=== PATIENT | male | born 1960 | race Caucasian/White ===

== ENCOUNTER 2016-12-27 14:48 | Observation (INO) | payer BC ==
--- NOTE | 2016-12-27 15:06 | Emergency Department Record ---
History of Present Illness - General Chief Complaint: Chest Pain Stated Complaint: BARRETT,CHEST HURST Time Seen by Provider: 12/27/16 15:04 Source: Patient Mode of Arrival: Ambulatory Limitations: No limitations - History of Present Illness Initial Comments: The patient is here due to a 5 hour hx of being ill. He got home this AM from work and went to bed at 7am. At 10am he woke up with vomiting and diarrhea. He had multiple episodes over the next 3 hours of each. He also had some LUQ AP. After the vomiting seemed to improve he developed some SOB. The patient has had no CP, sweating or any cardiac type pain symptoms. He also is feeling leg cramps at times. The patient has had 2 open heart surgeries due to a mitral valve issue and he is on Coumadin. The also has had a mild BEARDEN since this all started but did not hit his head. MD Complaint: Other Onset/Timin -: Hour(s) Onset: Awoke with symptoms Pain Location: Other (L Flank.) Severity: Mild Severity scale (1-10): 7 Quality: Aching Consistency: Constant Improves With: Rest Worsens With: Exertion, Inspiration, Movement - Related Data Home Medications Medication Instructions Recorded Confirmed Last Taken Aspirin [Aspir 81] 81 mg PO DAILY tab. 11/08/15 12/27/16 1 Day Ago Atorvastatin Calcium [Lipitor] 10 mg PO DAILY tab 11/08/15 12/27/16 1 Day Ago Clonazepam [Klonopin] 0.5 mg PO DAILY tab 11/08/15 12/27/16 1 Day Ago Magnesium Oxide [Magnesium] 125 mg PO DAILY tab 11/08/15 12/27/16 1 Day Ago Omeprazole [Prilosec] 20 mg PO DAILY cap 11/08/15 12/27/16 1 Day Ago Warfarin Sodium 2.5 mg PO WEEKLY tab 11/08/15 12/27/16 1 Day Ago Warfarin Sodium 5 mg PO 6XWEEK tab 11/08/15 12/27/16 1 Day Ago Amiodarone HCl [Amiodarone HCl] 100 mg PO DAILY 12/24/15 12/27/16 1 Day Ago Metoprolol Tartrate [Lopressor] 25 mg PO BID 12/27/16 12/27/16 1 Day Ago Previous Rx's Medication Instructions Recorded Hydrocodone/Acetaminophen [[place] 1 - 2 each PO QID #20 tablet 12/24/15 5-325 Tablet] Allergies Allergy/AdvReac Type Severity Reaction Status Date / Time No Known Allergies Allergy none Verified 12/27/16 15:03 Travel Screening - Travel/Exposure Within Last 30 Days Have you traveled within the last 30 days?: No - Travel/Exposure Within Last Year Have you traveled outside the [place] in the last year?: No - Additonal Travel Details Have you been exposed to anyone with a communicable illness?: No - Travel Symptoms Symptom Screening: None Review of Systems Constitutional: Reports: Malaise. Denies: Chills, Fever Eyes: Denies: Eye discharge ENT: Denies: Congestion Respiratory: Reports: Dyspnea. Denies: Cough, Hemoptysis Cardiovascular: Denies: Arrhythmia, Chest pain Endocrine: Reports: Fatigue Gastrointestinal: Reports: Abdominal pain, Diarrhea, Nausea, Vomiting Genitourinary: Denies: Dysuria Musculoskeletal: Denies: Back pain Skin: Denies: Bruising Past Medical History - SOCIAL HISTORY Smoking Status: Never smoker Alcohol Use: None Drug Use: None - RESPIRATORY Hx Respiratory Disorders: No - CARDIOVASCULAR Hx Cardio Disorders: Yes Hx Cardiac Cath: Yes Hx Deep Vein Thrombosis: Yes Hx Heart Attack: Yes Hx Irregular Heartbeat: Yes - NEURO Hx Neuro Disorders: No - GI Hx Reflux: Yes - Hx Genitourinary Disorders: Yes Hx Bladder Problem: Yes Hx Kidney Stones: Yes Comment:: frequeny urination - ENDOCRINE Hx Diabetes: No Hx Thyroid Disease: No - MUSCULOSKELETAL Hx Musculoskeletal Disorders: No - PSYCH Hx Psych Problems: No - HEMATOLOGY/ONCOLOGY Hx Hematology/Oncology Disorders: No Family Medical History Any Significant Family History?: Yes Hx Heart Disease: Father, Brother/Sister *Heart Comment: father [place] Physical Exam - General General Appearance: Alert, Oriented x3, Cooperative, No acute distress - Head Head exam: Atraumatic, Normocephalic, Normal inspection - Eye Eye exam: Normal appearance, PERRL - Neck Neck exam: Normal inspection, Full ROM. negative: Tenderness - Respiratory Respiratory exam: Normal lung sounds bilaterally. negative: Respiratory distress - Cardiovascular Cardiovascular Exam: Regular rate, Normal rhythm, Normal heart sounds - GI/Abdominal GI/Abdominal exam: Soft, Tenderness (There is mild LUQ abdominal tenderness.). negative: Guarding, Rebound, Rigid - Extremities Extremities exam: Normal inspection, Full ROM, Normal capillary refill. negative: Tenderness - Neurological Neurological exam: Alert, Normal gait. negative: Abnormal gait, Motor sensory deficit Course Vital Signs 12/27/16 14:53 Temperature 98.8 F Pulse Rate 75 Respiratory 22 Rate Blood Pressure 103/77 Pulse Ox 92 L - Reevaluation(s) Reevaluation #1: The patient is doing much better at this time. His RA biox is running 96% and he no longer has any LUQ AP or BARRETT. His nausea and vomiting has resolved. The patient also states her BEARDEN is pretty much gone now. I explained to the patient that his workup so far is WNL but due to the constellation of his symptoms and hx I do feel it is important to keep him in the hospital overnight. The patient agrees to the plan. I then did discuss the case with DR. Sepulveda and she accepts the admission. 12/27/16 16:44 Medical Decision Making - Management Options MDM Management: Additional Work-up Planned (e.g. ADM/Transfer/OP Study) - Data Complexity MDM Data: Labs Ordered and/or Reviewed, X-Ray Ordered and/or Reviewed, EKG Ordered and/or Reviewed - Lab Data Result diagrams: 12/27/16 15:13 12/27/16 15:27 - EKG Data -: EKG Interpreted by Me EKG: No Acute Changes, Normal EKG - Radiology Data Radiology results: Report reviewed (CXR: Neg Abd CT: No acute changes in the LUQ.) Disposition Disposition: Admit Clinical Impression: Dyspnea Qualifiers: Dyspnea type: unspecified Qualified Code(s): R06.00 - Dyspnea, unspecified Disposition: Still a Patient at [facility] Decision to Admit: Admit from ER Decision to Admit Date: 12/27/16 Decision to Admit Time: 16:47 Accepting Physician: Coco Time Discussed w/Accepting Physician: 16:47 Condition: (2) Stable Forms: Patient Portal Access Time of Disposition: 16:47
[2016-12-27 15:23] LABS: BASO % 0.1 % (0-6); EOS % 0.4 % (0-6); HEMATOCRIT 46.2 % (42.0-52.0); HEMOGLOBIN 15.9 gm/dl (14.0-18.0); LYMPH % 3.6 % (16-45); MEAN CELL VOLUME 95.3 fl (81-97); MEAN CORPUSCULAR HEMOGLOBIN 32.8 pg (27-33); MEAN CORPUSCULAR HGB CONC 34.4 g/dl (32-36); MEAN PLATELET VOLUME 9.3 fl (7.4-10.4); MONO % 6.3 % (0-9); PLATELET COUNT 176 K/uL (130-400); RED BLOOD COUNT 4.85 M/uL (4.40-5.70); RED CELL DISTRIBUTION WIDTH 13.6 % (11.5-14.5); WHITE BLOOD COUNT W/O DIFF 11.3 K/uL (4.2-12.2)
[2016-12-27 15:39] LABS: ANION GAP 13.3 (7-16); BLOOD UREA NITROGEN 22 mg/dL (9-20); CARBON DIOXIDE 21.7 mmol/L (22-30); CREATINE PHOSPHOKINASE 34 U/L (55-170); CREATININE 1.2 mg/dL (0.66-1.25); EST GLOMERULAR FILTRATION RATE > 60 ml/min; GLUCOSE,RANDOM 102 mg/dL (70-110)
[2016-12-27 15:42] LABS: D-DIMER 0.52 mg/L FEU (0-0.59); INR 1.74; PARTIAL THROMBOPLASTIN TIME 28.1 SECONDS (24.5-39.1); PROTHROMBIN TIME (PATIENT) 19.7 SECONDS (9.5-12.1)
[2016-12-27] MEDS ORDERED: ACETAMINOPHEN 325 MG TAB PO ONE (15:51)
[2016-12-27 15:53] LABS: CKMB 0.2 ug/L (0-6); TROPONIN I < 0.012 ng/mL (0.00-0.034)
[2016-12-27] MEDS ORDERED: ONDANSETRON HCL IV 4 MG/2 ML VIAL IVP ONE (15:57)
[2016-12-27] MEDS ORDERED: 0.9 % SODIUM CHLORIDE 1,000 ML BAG IV ONE (15:57)
[2016-12-27] MEDS ORDERED: WARFARIN 2.5 MG TAB PO SCH (17:00)
[2016-12-27] MEDS ORDERED: 0.9 % SODIUM CHLORIDE 1000ML 1,000 ML IV PRN (17:25)
[2016-12-27 17:38] LABS: INFLUENZA A NEGATIVE (NEGATIVE); INFLUENZA B NEGATIVE (NEGATIVE)
[2016-12-27] MEDS ORDERED: HYDROCODONE/APAP 5/325MG TABLET PO SCH (18:00)
[2016-12-27] MEDS ORDERED: HYDROCODONE/APAP 5/325MG TABLET PO PRN ×2 (18:37→18:40)
[2016-12-27] MEDS: ASPIRIN 325 MG TAB ENTERIC-COATED PO SCH (18:54)
[2016-12-27] MEDS: ACETAMINOPHEN 500 MG TABLET PO PRN (21:10)
[2016-12-27] MEDS: PANTOPRAZOLE SODIUM 40 MG TABLET PO SCH (21:11)
[2016-12-27] MEDS: METOPROLOL TART 25 MG TABLET PO SCH (21:11)
[2016-12-27 21:40] LABS: URINE APPEARANCE CLEAR; URINE BILIRUBIN NEGATIVE (NEGATIVE); URINE BLOOD NEGATIVE (NEGATIVE); URINE COLOR YELLOW; URINE GLUCOSE (UA) NEGATIVE (NEGATIVE); URINE KETONE NEGATIVE (NEGATIVE); URINE LEUKOCYTE ESTERASE NEGATIVE (NEGATIVE); URINE NITRITE NEGATIVE (NEGATIVE); URINE PROTEIN NEGATIVE (NEGATIVE); URINE UROBILINOGEN 0.2 E.U./dL (0.20 - 1.00)
[2016-12-27] MEDS ORDERED: ATORVASTATIN 20 MG TABLET PO SCH (22:00)
[2016-12-27] MEDS ORDERED: AMIODARONE HCL 200 MG TABLET PO SCH (22:00)
[2016-12-27] MEDS ORDERED: CLONAZEPAM 1MG TABLET PO PRN (22:00)
[2016-12-28 04:29] LABS: HEMATOCRIT 43.9 % (42.0-52.0); HEMOGLOBIN 15.1 gm/dl (14.0-18.0); MEAN CELL VOLUME 96.3 fl (81-97); MEAN CORPUSCULAR HEMOGLOBIN 33.1 pg (27-33); MEAN CORPUSCULAR HGB CONC 34.4 g/dl (32-36); MEAN PLATELET VOLUME 9.3 fl (7.4-10.4); PLATELET COUNT 152 K/uL (130-400); RED BLOOD COUNT 4.56 M/uL (4.40-5.70); RED CELL DISTRIBUTION WIDTH 13.6 % (11.5-14.5); WHITE BLOOD COUNT W/O DIFF 6.1 K/uL (4.2-12.2)
[2016-12-28 04:51] LABS: BLOOD UREA NITROGEN 18 mg/dL (9-20); CREATININE 1.1 mg/dL (0.66-1.25); EST GLOMERULAR FILTRATION RATE > 60 ml/min; GLUCOSE,RANDOM 93 mg/dL (70-110)
[2016-12-28 04:56] LABS: INR 1.71; PROTHROMBIN TIME (PATIENT) 19.3 SECONDS (9.5-12.1)
--- NOTE | 2016-12-28 07:41 | History & Physical ---
History of Present Illness - Date of Service Date of Service for History & Physical: 12/28/16 - History of Present Illness Admitting Diagnosis: 1. Dyspnea, with CP, R/O SD History of Present Illness: Norman Fan is a 56 y/o male with history of CAD, CHF, HTN, cardiac thrombosis admitted for dyspena and chest pain r/o SD. Patient had 5 hour hx of headache, vomiting, diarrhea with LUQ abdominal pain that improved after vomiting. After vomiting developed shortness of breath- denied chest pain, diaphoresis, dizziness, palpitations but did report feeling his heart "go into a-fib" which lead to his arrival to ER Drives truck, + sick contacts. Patient is currently on coumadin 2nd hx open heart surgery x 2 for mitral valve repair- 2005. 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 Mo Travel Screening - Travel/Exposure Within Last 30 Days Have you traveled within the last 30 days?: No - Travel/Exposure Within Last Year Have you traveled outside the [place] in the last year?: No - Additonal Travel Details Have you been exposed to anyone with a communicable illness?: No - Travel Symptoms Symptom Screening: Headache, Weakness, Fatigue, Diarrhea, Vomiting Review of Systems Constitutional: Reports: Malaise. Denies: Chills, Fever Eyes: Denies: Eye discharge ENT: Denies: Congestion Respiratory: Reports: Dyspnea. Denies: Cough, Hemoptysis Cardiovascular: Denies: Arrhythmia, Chest pain Endocrine: Reports: Fatigue Gastrointestinal: Reports: Abdominal pain, Diarrhea, Nausea, Vomiting Genitourinary: Denies: Dysuria Musculoskeletal: Denies: Back pain Skin: Denies: Bruising Past Medical History - SOCIAL HISTORY Smoking Status: Never smoker Alcohol Use: None Drug Use: None - RESPIRATORY Hx Respiratory Disorders: No - CARDIOVASCULAR Hx Cardio Disorders: Yes Hx Abnormal EKG: No Hx Cardiac Cath: Yes Hx Chest Pain: Yes Hx CHF: Yes Hx Deep Vein Thrombosis: Yes Hx Edema: No Hx Heart Attack: Yes (2005) Hx Hypertension: Yes Hx Hypotension: No Hx Irregular Heartbeat: Yes Hx Palpitations: Yes Hx Pacemaker/Defib: No Hx Vascular Disease: No - NEURO Hx Neuro Disorders: No - GI Hx GI Disorders: Yes Hx Abdominal Pain: No Hx Celiac Disease: No Hx Crohn's Disease: No Hx Diverticulitis: No Hx GI Bleed: No Hx Reflux: Yes Hx Hepatitis/Jaundice: No Hx Hiatal Hernia: No Hx Irritable Bowel: No Hx Liver Disease: No Hx Nausea/Vomiting: Yes Hx Obstructive Bowel: No Hx Pancreatitis: No Hx Rectal Bleeding: No Hx Ulcer: No Hx Wt Loss/Wt Gain: No Hx of Polyps: No - Hx Genitourinary Disorders: Yes Hx Bladder Problem: Yes Hx Dialysis: No Hx Kidney Stones: Yes Hx Prostate Problems: No Hx Renal Disease: No Hx UTI: No Comment:: frequeny urination - ENDOCRINE Hx Endocrine Disorders: No Hx Diabetes: No Hx Thyroid Disease: No - MUSCULOSKELETAL Hx Musculoskeletal Disorders: No - PSYCH Hx Psych Problems: No - HEMATOLOGY/ONCOLOGY Hx Hematology/Oncology Disorders: No Family Medical History Any Significant Family History?: Yes Hx Heart Disease: Father, Brother/Sister *Heart Comment: father [place] H&P Meds/Allergies - Allergies Allergies: Allergies Allergy/AdvReac Type Severity Reaction Status Date / Time No Known Allergies Allergy none Verified 12/27/16 18:20 - Home Medications Home Medications Medication Instructions Recorded Confirmed Last Taken Aspirin [Aspir 81] 81 mg PO DAILY tab. 11/08/15 12/27/16 1 Day Ago Atorvastatin Calcium [Lipitor] 10 mg PO QHS tab 11/08/15 12/27/16 1 Day Ago Clonazepam [Klonopin] 0.5 mg PO QHS PRN tab 11/08/15 12/27/16 1 Day Ago Magnesium Oxide [Magnesium] 125 mg PO DAILY tab 11/08/15 12/27/16 1 Day Ago Omeprazole [Prilosec] 20 mg PO BID cap 11/08/15 12/27/16 1 Day Ago Warfarin Sodium 2.5 mg PO TUWETHFR tab 11/08/15 12/27/16 1 Day Ago Warfarin Sodium 5 mg PO SUMOSA tab 11/08/15 12/27/16 1 Day Ago Amiodarone HCl [Amiodarone HCl] 100 mg PO QHS 12/24/15 12/27/16 1 Day Ago Metoprolol Tartrate [Lopressor] 25 mg PO BID 12/27/16 12/27/16 1 Day Ago Previous Rx's Medication Instructions Recorded Hydrocodone/Acetaminophen [[place] 1 - 2 each PO QID #20 tablet 12/24/15 5-325 Tablet] - Active Medications Active Medications: Current Medications Acetaminophen (Tylenol 500mg Tab) 1,000 mg PO Q8HR PRN PRN Reason: Pain - General Last Admin: 12/27/16 21:10 Dose: 1,000 mg Acetaminophen/Hydrocodone Bitart ([place] 5mg/325mg) 1 each PO QID PRN PRN Reason: Pain - General Acetaminophen/Hydrocodone Bitart ([place] 5mg/325mg) 2 each PO QID PRN PRN Reason: Pain - General Amiodarone HCl ([place]) 100 mg PO QHS [facility] Last Admin: 12/27/16 21:12 Dose: 100 mg Aspirin (Ecotrin (Ec)) 325 mg PO DAILY [facility] Last Admin: 12/27/16 18:54 Dose: 325 mg Atorvastatin Calcium (Lipitor) 10 mg PO QHS [facility] Last Admin: 12/27/16 21:11 Dose: 10 mg Clonazepam (Klonopin) 0.5 mg PO QHS PRN PRN Reason: RESTLESS LEGS Sodium Chloride () 1,000 mls @ 83 mls/hr IV .Q12H3M PRN PRN Reason: LARGE VOLUME IV Last Admin: 12/27/16 19:02 Dose: 83 mls/hr Metoprolol Tartrate (Lopressor) 25 mg PO BID [facility] Last Admin: 12/27/16 21:11 Dose: 25 mg Pantoprazole Sodium (Protonix) 40 mg PO BID [facility] Last Admin: 12/27/16 21:11 Dose: 40 mg Warfarin Sodium (Coumadin) 2.5 mg PO [facility] Last Admin: 12/27/16 18:54 Dose: 2.5 mg Warfarin Sodium (Coumadin) 5 mg PO Sa [facility] Physical Exam - Vital Signs Vital Signs: Vital Signs - Last 24 Hrs Temp Pulse Pulse Resp BP Pulse Ox 12/28/16 05:20 99.2 F 69 16 92/52 97 12/27/16 23:25 99.5 F 73 20 90/43 98 12/27/16 19:25 99.8 F H 78 20 104/59 94 L 03/01/17 18:11 80 79 14 12/27/16 17:25 99.5 F 79 14 113/69 94 L - General General Appearance: Alert, Oriented x3, Cooperative, No acute distress Limitations: No limitations - Head Head exam: Atraumatic, Normocephalic, Normal inspection - Eye Eye exam: Normal appearance, PERRL - ENT ENT exam: Normal exam, Mucous membranes moist, Normal external ear exam, Normal orophraynx, TM's normal bilaterally Ear exam: Normal external inspection. negative: External canal tenderness Nasal Exam: Normal inspection. negative: Discharge, Sinus tenderness Mouth exam: Normal external inspection, Tongue normal Teeth exam: Normal inspection. negative: Dental caries Throat exam: Normal inspection. negative: Tonsillar erythema, Tonsillar exudate - Neck Neck exam: Normal inspection, Full ROM, Other (scarring noted post-auricular area from previous attempt of carotid tumor removal, tender to palpation which is not new per patient report, underlying induration, boarders not well defined) . negative: Tenderness - Respiratory Respiratory exam: Normal lung sounds bilaterally. negative: Respiratory distress - Cardiovascular Cardiovascular Exam: Regular rate, Normal rhythm, Normal heart sounds Peripheral Pulses: 3+: Dorsalis Pedis (R), Dorsalis Pedis (L) - GI/Abdominal GI/Abdominal exam: Soft, Normal bowel sounds, Tenderness (mild generalized tenderness). negative: Guarding, Rebound, Rigid - Rectal Rectal exam: Deferred - Extremities Extremities exam: Normal inspection, Full ROM, Normal capillary refill. negative: Tenderness - Neurological Neurological exam: Alert, Normal gait. negative: Abnormal gait, Motor sensory deficit Results - Labs Result Diagrams: 12/28/16 04:10 12/28/16 04:10 Labs Last 24 Hours: Laboratory Results - last 24 hr 12/27/16 12/27/16 12/27/16 20:46 20:46 21:00 WBC RBC Hgb Hct MCV MCH MCHC RDW Plt Count MPV Gran % Neutrophils % Band Neutrophils % Lymphocytes % Monocytes % Eosinophils % Basophils % PT INR PTT Sodium Potassium Chloride Carbon Dioxide Anion Gap BUN Creatinine Estimated GFR Random Glucose Calcium CK-MB (CK-2) < 0.2 Troponin I < 0.012 Urine Color Yellow Urine Appearance Clear Urine pH 7.5 Ur Specific [place] 1.020 Urine Protein Negative Urine Glucose (UA) Negative Urine Ketones Negative Urine Blood Negative Urine Nitrite Negative Urine Bilirubin Negative Urine Urobilinogen 0.2 Ur Leukocyte Esterase Negative 12/28/16 12/28/16 12/28/16 04:10 04:10 04:10 WBC 6.1 RBC 4.56 Hgb 15.1 Hct 43.9 MCV 96.3 MCH 33.1 H MCHC 34.4 RDW 13.6 Plt Count 152 MPV 9.3 Gran % Newspaper Editor Managing Neutrophils % 82.0 H Band Neutrophils % 0.0 Lymphocytes % 10.0 L Monocytes % 7.0 Eosinophils % 1.0 Basophils % 0.0 PT INR PTT 30.30 Sodium Potassium Chloride Carbon Dioxide Anion Gap BUN Creatinine Estimated GFR Random Glucose Calcium CK-MB (CK-2) < 0.2 Troponin I Urine Color Urine Appearance Urine pH Ur Specific [place] Urine Protein Urine Glucose (UA) Urine Ketones Urine Blood Urine Nitrite Urine Bilirubin Urine Urobilinogen Ur Leukocyte Esterase 12/28/16 12/28/16 12/28/16 04:10 04:10 04:10 WBC RBC Hgb Hct MCV MCH MCHC RDW Plt Count MPV Gran % Neutrophils % Band Neutrophils % Lymphocytes % Monocytes % Eosinophils % Basophils % PT 19.3 H INR 1.71 PTT Sodium 138 Potassium 4.4 Chloride 105 Carbon Dioxide 23.0 Anion Gap 10.0 BUN 18 Creatinine 1.1 Estimated GFR > 60 Random Glucose 93 Calcium 8.4 L CK-MB (CK-2) Troponin I < 0.012 Urine Color Urine Appearance Urine pH Ur Specific [place] Urine Protein Urine Glucose (UA) Urine Ketones Urine Blood Urine Nitrite Urine Bilirubin Urine Urobilinogen Ur Leukocyte Esterase - Imaging and Cardiology Chest x-ray Status: Report reviewed (1-infiltrate mid right lung base) CT scan - abdomen Status: Report reviewed (1- new renal calucli, non obstructing, 2- chronic numerous gall bladder calculi, 3- stable right kidney mass, 4- stable liver mass ) VTE H&P Assessment - Risk for VTE Risk for VTE: Yes Risk Level: High Risk Assessment Date: 12/28/16 Risk Assessment Time: 07:42 VTE Orders Placed or Will Be Placed: Yes Plan - Detailed Diagnosis and Plan (1) Dyspnea Current Visit: Yes Status: Acute Qualifiers: Dyspnea type: unspecified Qualified Code(s): R06.00 - Dyspnea, unspecified Base Code: R06.00 - DYSPNEA, UNSPECIFIED Comment: 3/2- acute onset dyspnea after 5 hour hx nausea, vomiting, LUQ abdominal pain - cardiac enzymes x 3 negative - BNP 329- chronic CHF - acute bacterial/viral work up normal- neg influenza screen, U/A, WBC 6.1 - diarrhea,nausea, vomiting, dyspnea resolved, no occurence since admission - tolerating PO intake - CXR with mid right lung infiltrate with no history of fever, cough, recent illness - follow up with PCP in 1 week - follow up cardiology 1 week (2) History of carotid body tumor Current Visit: Yes Status: Acute Base Code: Z86.39 - PERSONAL HISTORY OF ENDO, NUTRITIONAL AND METABOLIC DISEASE Comment: 3/2- known benign turmor surrounding right carotid artery - pathology report not available at this time - has consulted with Dr Rice in [place] (ENT) with attempt to remove - referred to [facility] by Dr Rice due to extensive nerve involvement - follow up with ENT and [facility] as scheduled (3) DVT prophylaxis Current Visit: Yes Status: Acute Base Code: [id number] - Comment: 3/2- Will continue with coumadin as per home dosing with pharm D to follow - high risk 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, previous mitral valve repair (4) Full code status Current Visit: Yes Status: Acute Base Code: Z78.9 - OTHER SPECIFIED HEALTH STATUS Comment: 3/2- will remain full code status during this hospitalization
--- NOTE | 2016-12-28 07:52 | RADIOLOGY REPORT ---
EXAM: CHEST, TWO VIEWS HISTORY: DIFFICULTY IN BREATHING. TECHNIQUE: Frontal and lateral views of the chest were performed. FINDINGS: There are postop sternotomy wires. There is an infiltrate in the medial right lung base. No pleural effusion. Postop sternotomy wires. IMPRESSION: INFILTRATE MEDIAL RIGHT LUNG BASE. NO ACUTE PROCESS. JOB NUMBER: [id number] MTDD
--- NOTE | 2016-12-28 08:02 | CT SCAN REPORT ---
EXAM: CT OF THE ABDOMEN AND PELVIS WITHOUT CONTRAST HISTORY: LEFT FLANK PAIN, EMESIS. TECHNIQUE: Axial CT scan of the abdomen and pelvis was performed without oral or IV contrast. Comparison: CT of the abdomen and pelvis 12/24/15. FINDINGS: There are one or two very tiny calcific foci in the right kidney likely representing tiny nonobstructing intrarenal calculi on the right. None seen on the left. There is no hydronephrosis or hydroureter seen on either side. No hydroureter on either side. No ureteral calculus or bladder calculus seen. Numerous calcified gallstones are seen in the gallbladder, also present previously. No additional findings to suggest acute cholecystitis currently. Previously noted approximately 1.5 cm low attenuation focus posteriorly in the liver is again seen today and appears unchanged in size again measuring about 1.5 cm. This is incompletely evaluated without IV contrast, but presumably a small hepatic cyst or hemangioma. The previously noted approximately 6 cm low attenuation mass in the upper pole of the left kidney is also again seen today, and also appears essentially unchanged measuring about 5.7 cm in size, also incompletely evaluated without IV contrast, but having a CT density of 14 would be consistent with a cyst. Evaluation of the bowel and viscera is very limited without oral or IV contrast. Given this limitation, no definite splenic, adrenal, pancreatic, or right renal mass identified. The patient is postop sternotomy. The appendix is visualized and appears negative with no appendicitis evident. No free intraperitoneal air or free intraperitoneal fluid identified. Degenerative disk disease at the lumbosacral interspace. IMPRESSION: 1. A COUPLE TINY NONOBSTRUCTING CALCULI RIGHT KIDNEY. NO HYDRONEPHROSIS OR URETERAL CALCULUS SEEN ON EITHER SIDE. 2. STABLE LOW ATTENUATION MASS UPPER POLE LEFT KIDNEY PRESUMABLY A CYST. 3. STABLE SMALL LOW ATTENUATION FOCUS POSTERIORLY RIGHT LOBE OF THE LIVER PRESUMABLY A CYST OR HEMANGIOMA. 4. CHOLELITHIASIS AGAIN EVIDENT WITH NO ADDITIONAL FINDINGS TO SUGGEST ACUTE CHOLECYSTITIS. 5. DEGENERATIVE DISK DISEASE AT THE LUMBOSACRAL INTERSPACE. 6. THE APPENDIX APPEARS NEGATIVE. NO FREE AIR OR FREE FLUID EVIDENT. JOB NUMBER: [id number] [facility]
[2016-12-28] MEDS: ASPIRIN 325 MG TAB ENTERIC-COATED PO SCH (10:28)
[2016-12-28] MEDS: PANTOPRAZOLE SODIUM 40 MG TABLET PO SCH (10:28)
[2016-12-28] MEDS: ACETAMINOPHEN 500 MG TABLET PO PRN (10:28)
[2016-12-28] MEDS: METOPROLOL TART 25 MG TABLET PO SCH (10:28)
--- NOTE | 2016-12-28 12:20 | Discharge Summary ---
Providers Discharge Summary Date: 12/28/16 Date of admission: 12/27/16 17:18 Expected Date of Discharge: 12/28/16 Attending physician: TETE SANDOVAL Primary care physician: SCOT UREÑA D.O. Physical Exam - Vital Signs Vital Signs: Vital Signs - Last 24 Hrs Temp Pulse Pulse Resp BP Pulse Ox 12/28/16 10:31 98.1 F 70 16 112/63 98 12/28/16 07:59 74 16 12/28/16 05:20 99.2 F 69 16 92/52 97 12/27/16 23:25 99.5 F 73 20 90/43 98 12/27/16 19:25 99.8 F H 78 20 104/59 94 L 12/27/16 18:11 80 79 14 12/27/16 17:25 99.5 F 79 14 113/69 94 L - General General Appearance: Alert, Oriented x3, Cooperative, No acute distress Limitations: No limitations - Head Head exam: Atraumatic, Normocephalic, Normal inspection - Eye Eye exam: Normal appearance, PERRL - ENT ENT exam: Normal exam, Mucous membranes moist, Normal external ear exam, Normal orophraynx, TM's normal bilaterally Ear exam: Normal external inspection. negative: External canal tenderness Nasal Exam: Normal inspection. negative: Discharge, Sinus tenderness Mouth exam: Normal external inspection, Tongue normal Teeth exam: Normal inspection. negative: Dental caries Throat exam: Normal inspection. negative: Tonsillar erythema, Tonsillar exudate - Neck Neck exam: Normal inspection, Full ROM, Other (scarring noted post-auricular area from previous attempt of carotid tumor removal, tender to palpation which is not new per patient report, underlying induration, boarders not well defined) . negative: Tenderness - Respiratory Respiratory exam: Normal lung sounds bilaterally. negative: Respiratory distress - Cardiovascular Cardiovascular Exam: Regular rate, Normal rhythm, Normal heart sounds Peripheral Pulses: 3+: Dorsalis Pedis (R), Dorsalis Pedis (L) - GI/Abdominal GI/Abdominal exam: Soft, Normal bowel sounds, Tenderness (mild generalized tenderness). negative: Guarding, Rebound, Rigid - Rectal Rectal exam: Deferred - Extremities Extremities exam: Normal inspection, Full ROM, Normal capillary refill. negative: Tenderness - Neurological Neurological exam: Alert, Normal gait. negative: Abnormal gait, Motor sensory deficit Hospitalization - Hospitalization Admission Diagnosis: 1. Dyspnea, with CP, R/O TN - Problem List/Discharge Diagnosis (1) Dyspnea Current Visit: Yes Status: Acute Discharge Diagnosis: Dyspnea type: unspecified Qualified Code(s): R06.00 - Dyspnea, unspecified Base Code: R06.00 - DYSPNEA, UNSPECIFIED Comment: 3/- acute onset dyspnea after 5 hour hx nausea, vomiting, LUQ abdominal pain - cardiac enzymes x 3 negative - BNP 329- chronic CHF - acute bacterial/viral work up normal- neg influenza screen, U/A, WBC 6.1 - diarrhea,nausea, vomiting, dyspnea resolved, no occurence since admission - tolerating PO intake - CXR with mid right lung infiltrate with no history of fever, cough, recent illness - follow up with PCP in 2 weeks with subtherapeutic INR to be managed as outpatient - follow up education spec Dr Mo in 1 week (2) History of carotid body tumor Current Visit: Yes Status: Acute Base Code: Z86.39 - PERSONAL HISTORY OF ENDO, NUTRITIONAL AND METABOLIC DISEASE Comment: 3/2- known benign turmor surrounding right carotid artery - pathology report not available at this time - has consulted with Dr Rice in [place] (ENT) with attempt to remove - referred to [facility] by Dr Rice due to extensive nerve involvement - follow up with ENT and [facility] as scheduled (3) DVT prophylaxis Current Visit: Yes Status: Acute Base Code: [id number] - Comment: 3/2- Will continue with coumadin as per home dosing with pharm D to follow - high risk 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, previous mitral valve repair (4) Full code status Current Visit: Yes Status: Acute Base Code: Z78.9 - OTHER SPECIFIED HEALTH STATUS Comment: 3/2- will remain full code status during this hospitalization - Hospitalization Course Abnormal Labs: Abnormal Lab Results 12/28/16 12/28/16 12/28/16 Range/Units 04:10 04:10 04:10 MCH 33.1 H (27-33) pg Neutrophils % 82.0 H (47-80) % Lymphocytes % 10.0 L (16-45) % PT 19.3 H (9.5-12.1) SECONDS Calcium 8.4 L (8.5-10.1) mg/dL Discharge Medications - Discharge Medications Home Medications: Ambulatory Orders Aspirin [Aspir 81] 81 mg PO DAILY tab.dr 11/08/15 [Last Taken 1 Day Ago] Atorvastatin Calcium [Lipitor] 10 mg PO QHS tab 11/08/15 [Last Taken 1 Day Ago] Clonazepam [Klonopin] 0.5 mg PO QHS PRN tab 11/08/15 [Last Taken 1 Day Ago] Magnesium Oxide [Magnesium] 125 mg PO DAILY tab 11/08/15 [Last Taken 1 Day Ago] Omeprazole [Prilosec] 20 mg PO BID cap 11/08/15 [Last Taken 1 Day Ago] Warfarin Sodium 2.5 mg PO TUWETHFR tab 11/08/15 [Last Taken 1 Day Ago] Warfarin Sodium 5 mg PO SUMOSA tab 11/08/15 [Last Taken 1 Day Ago] Amiodarone HCl 100 mg PO QHS 12/24/15 [Last Taken 1 Day Ago] Hydrocodone/Acetaminophen [Monson 5mg/325mg] 1 - 2 each PO QID #20 tablet [Last Taken 1 Day Ago] Metoprolol Tartrate [Lopressor] 25 mg PO BID 12/27/16 [Last Taken 1 Day Ago] Discharge Plan - Discharge Instructions Activity at Discharge: Increase Activity as Tolerated Diet at Discharge: Low Fat, Low Cholesterol
[2016-12-30] MEDS ORDERED: WARFARIN 5 MG TAB PO SCH (17:00)
== END 2016-12-28 13:24 | disposition home or self-care (01) ==
LOC: ER 14:48 → MEDSURG 17:18
PROVIDERS: ADMIT Family Medicine; ATTEND Family Medicine
DX: R06.00 Dyspnea, unspecified (principal); R11.2 Nausea with vomiting, unspecified; R10.12 Left upper quadrant pain; I50.9 Heart failure, unspecified; Z79.01 Long term (current) use of anticoagulants; I10 Essential (primary) hypertension; Z78.9 Other specified health status; Z86.718 Personal history of other venous thrombosis and embolism
CPT/HCPCS: 99285 ×2; 96360; 96374; 82550; 85730 ×2; 85610 ×2; 82553 ×2; 84484 ×2; 80048 ×2; 81003; 87400; 85379; 85027 ×2; 83880; 71020; 74176; 94760; 93005 ×2; 93010 ×2; G0378 ×2; J2405; 99220; J7030

== ENCOUNTER 2018-05-17 08:57 | Day surgery (SDC) | payer BC ==
[2018-05-17] MEDS ORDERED: LIDOCAINE 1% MDV (10MG/ML) 20ML VIAL SQ ONE (08:58)
[2018-05-17] MEDS ORDERED: PROPOFOL 10 MG/ML VIAL IV ONE (08:58)
--- NOTE | 2018-05-29 12:30 | Operative Note ---
DATE OF SURGERY: 05/17/2018 SURGEON: Khushi Beltran MD OPERATION: COLONOSCOPY. INDICATIONS: This is a 57-year-old male with average risk for colorectal cancer who presented for screening colonoscopy. POSTOPERATIVE DIAGNOSES: 1. Left-sided colonic diverticulosis. 2. Otherwise normal colon. ANESTHESIA: Sedation is per Anesthesia. Pulse oximetry was monitored throughout the procedure to maintain O2 saturation of 90% or greater. Supplemental oxygen was administered via nasal cannula. Cardiac and vital signs were monitored throughout the duration of the procedure, and they were stable. The procedure of colonoscopy and risks and alternatives of the procedure, including the risk of bleeding and perforation, among others, were explained to the patient who voiced understanding and agreed to have the procedure done. Physical examination was performed, and the patient was found stable for sedation. PROCEDURE: The patient was placed in the left lateral position. Sedation was initiated. A digital rectal exam was performed and showed some mild external hemorrhoids with no palpable rectal masses. An Olympus PCF-180AL colonoscope was then inserted into the rectum under direct visualization. It was advanced to the cecum without difficulty. The ileocecal valve and appendiceal orifice were identified and photographed. The colonic mucosa was carefully examined upon introduction of the colonoscope. There were scattered diverticula noted in the sigmoid and descending colon. The colon was tortuous requiring change of scope and turning the patient onto the side before achieving a cecal intubation. The colonoscope was then withdrawn while carefully examining the colonic mucosal surfaces. No other lesions were noted. In the rectum, retroflexion was performed and grade 1 internal hemorrhoids were noted. The colonoscope was then withdrawn and the procedure was terminated. The patient tolerated the procedure well without any immediate complications. The patient remained with stable vital signs and was transferred to the recovery room. RECOMMENDATIONS: 1. The patient should be on a high-fiber diet. 2. The patient is to have a repeat colonoscopy for screening in 10 years. Thank you for allowing me to participate in the care of your patient. CC: MD DALLIN Davila
== END 2018-05-17 12:15 | disposition home or self-care (01) ==
LOC: HOP 08:57
PROVIDERS: ATTEND Internal Medicine Gastroenterology
DX: Z12.11 Encounter for screening for malignant neoplasm of colon (principal); K57.90 Diverticulosis of intestine, part unspecified, without perforation or abscess without bleeding; K64.0 First degree hemorrhoids; I48.91 Unspecified atrial fibrillation; I10 Essential (primary) hypertension

== ENCOUNTER 2019-10-11 20:40 | Emergency (ER) | payer BC ==
[2019-10-11 21:16] LABS: ABSOLUTE NEUTROPHIL COUNT 4.97; BASO % 0.2 % (0-6); EOS % 1.4 % (0-6); GRAN % 56.8 % (47-80); HEMOGLOBIN 14.4 gm/dl (14.0-18.0); LYMPH % 32.8 % (16-45); MEAN CELL VOLUME 95.3 fl (81-97); MEAN CORPUSCULAR HEMOGLOBIN 31.9 pg (27-33); MEAN CORPUSCULAR HGB CONC 33.5 g/dl (32-36); MEAN PLATELET VOLUME 8.9 fl (7.4-10.4); MONO % 8.8 % (0-9); PLATELET COUNT 218 K/uL (130-400); RED BLOOD COUNT 4.51 M/uL (4.40-5.70); RED CELL DISTRIBUTION WIDTH 13.7 % (11.5-14.5); WHITE BLOOD COUNT W/O DIFF 8.8 K/uL (4.2-12.2)
--- NOTE | 2019-10-11 21:20 | Emergency Department Record ---
History of Present Illness - General Chief Complaint: Chest Pain Stated Complaint: CHEST PRESSURE/ AFIB Time Seen by Provider: 10/11/19 21:04 Source: Patient Mode of Arrival: Ambulatory Limitations: No limitations - History of Present Illness Initial Comments: The patient is here due to not feeling well for 2 days. He has a hx of chronic chest pressure for almost a year and feels it may be worse the last 2-3 days. He has had no cough, SOB, BARRETT, sweating or nausea. Today 8 hours ago he may have been in Afib for an hour then it resolved. The patient has a long hx of Afib. He has no hx of CAD but has had 2 mitral valve surgeries. The patient is also on Coumadin chronically. Additionally the patient has been on Doxycycline for 6 days for a sinus infection but feels he is not better. MD Complaint: Other Onset/Timin -: Hour(s) Onset: During rest Pain Location: Substernal, Left chest Pain Radiation: None Consistency: Intermittent Improves With: Rest Worsens With: Exertion Context: New medications Treatments Prior to Arrival: None - Related Data Home Medications Medication Instructions Recorded Confirmed Last Taken Gabapentin [Neurontin] 100 mg PO DAILY PRN 10/11/19 10/11/19 Unknown Omeprazole [Prilosec] 1 cap PO BID 10/11/19 10/11/19 10/11/19 Previous Rx's Medication Instructions Recorded Amoxicillin/Potassium Clav 1 tab PO BID #14 tab 10/11/19 [Augmentin 875-125 Tablet] Allergies Allergy/AdvReac Type Severity Reaction Status Date / Time No Known Drug Allergies Allergy Unverified 02/26/19 16:53 Travel Screening - Travel/Exposure Within Last 30 Days Have you traveled within the last 30 days?: No - Travel/Exposure Within Last Year Have you traveled outside the [place] in the last year?: No - Additonal Travel Details Have you been exposed to anyone with a communicable illness?: No - Travel Symptoms Symptom Screening: None Review of Systems Constitutional: Reports: Fever. Denies: Chills Eyes: Denies: Eye discharge ENT: Denies: Congestion Respiratory: Reports: Cough. Denies: Dyspnea Cardiovascular: Reports: Arrhythmia. Denies: Chest pain Endocrine: Reports: Fatigue Gastrointestinal: Denies: Nausea Genitourinary: Denies: Dysuria Musculoskeletal: Denies: Arthralgia Neurological: Denies: Abnormal gait Past Medical History - SOCIAL HISTORY Smoking Status: Never smoker Alcohol Use: Occasional Drug Use: None - RESPIRATORY Hx Respiratory Disorders: No - CARDIOVASCULAR Hx Cardio Disorders: Yes Hx Abnormal EKG: No Hx Cardiac Cath: Yes Hx Chest Pain: Yes Hx CHF: Yes Hx Deep Vein Thrombosis: No Hx Edema: No Hx Heart Attack: Yes (2006) Hx Hypertension: Yes Hx Hypotension: No Hx Irregular Heartbeat: Yes (AFib) Hx Palpitations: Yes Hx Pacemaker/Defib: No Hx Vascular Disease: No Comment:: WPW - NEURO Hx Neuro Disorders: No - GI Hx GI Disorders: Yes Hx Reflux: Yes Hx Nausea/Vomiting: Yes - Hx Genitourinary Disorders: Yes Hx Bladder Problem: Yes Hx Kidney Stones: Yes Comment:: frequeny urination - ENDOCRINE Hx Endocrine Disorders: No Hx Diabetes: No Hx Thyroid Disease: No - MUSCULOSKELETAL Hx Musculoskeletal Disorders: No - PSYCH Hx Psych Problems: No - HEMATOLOGY/ONCOLOGY Hx Hematology/Oncology Disorders: No Family Medical History Any Significant Family History?: Yes Hx Heart Disease: Father, Brother/Sister *Heart Comment: father MS Physical Exam - General General Appearance: Alert, Oriented x3, Cooperative, No acute distress - Head Head exam: Atraumatic, Normocephalic - Eye Eye exam: Normal appearance, PERRL, EOMI - ENT Throat exam: Normal inspection. negative: Tonsillar erythema, Tonsillar exudate - Neck Neck exam: Normal inspection, Full ROM. negative: Tenderness - Respiratory Respiratory exam: Normal lung sounds bilaterally. negative: Respiratory distress, Rhonchi, Stridor - Cardiovascular Cardiovascular Exam: Regular rate, Normal rhythm, Normal heart sounds. negative: Diastolic murmur, Systolic murmur - GI/Abdominal GI/Abdominal exam: Soft, Normal bowel sounds. negative: Tenderness - Extremities Extremities exam: Normal inspection, Full ROM, Normal capillary refill. negative: Tenderness - Neurological Neurological exam: Alert, Normal gait, Oriented X3. negative: Abnormal gait, Altered, Motor sensory deficit - Psychiatric Psychiatric exam: negative: Anxious Course Vital Signs 10/11/19 20:56 Temperature 97.4 F L Pulse Rate [ 77 Left] Respiratory 16 Rate Blood Pressure 168/93 [Left Arm] Pulse Ox 98 - Reevaluation(s) Reevaluation #1: The patient is doing very well at this time and is resting comfortably. He did voice concerns that he will need a new Abx due to not feeling the Doxycycline is helping him so I will change him to Augmentin. I did discuss the normal lab tests and neg workup with the patient. Due to the patient's risk factors I did recommend a short stay hospital admission but he is refusing. I did explain the risks of going home are that the patient could go home and have an MS, stroke, become disabled and even . The patient does understand and accept the risks. He presently has proper decision making capacity and will see his Industrial Safety And Health Manager next week. He also understands the need to return to the ER for any new or worsening symptoms. 10/11/19 22:02 Medical Decision Making - Data Complexity MDM Data: Labs Ordered and/or Reviewed, X-Ray Ordered and/or Reviewed, EKG Ordered and/or Reviewed - Lab Data Result diagrams: 10/11/19 21:10 10/11/19 21:10 - EKG Data -: EKG Interpreted by Me EKG: No Acute Changes, Unchanged From Previous - Radiology Data Radiology results: Report reviewed (CXR: Neg for acute dz.) Disposition Disposition: Discharge Clinical Impression: Palpitations Disposition: Home, Self-Care Condition: (2) Stable Instructions: Heart Palpitations (ED) Additional Instructions: PLease continue your regular medicines and take an extra dose of Coumadin tonight. Stop the Doxycycline and start the Augmentin. Please see your Industrial Safety And Health Manager next week for recheck and return to the ER for any new or worsening symptoms. Prescriptions: Amoxicillin/Potassium Clav [Augmentin 875-125 Tablet] 1 tab PO BID #14 tab Forms: Patient Portal Access Time of Disposition: 22:07 Quality - Quality Measures Quality Measures: N/A - Blood Pressure Screening View Details: Yes Does Patient Have Any of the Following: Active Dx of HTN Blood Pressure Classification: Hypertensive Reading Systolic Measurement: 145 Diastolic Measurement: 93 Screening for High Blood Pressure: Patient Exclusion, Hx of HTN [[id number]]
[2019-10-11 21:30] LABS: INR 1.7; PARTIAL THROMBOPLASTIN TIME 30.1 SECONDS (24.5-39.1); PROTHROMBIN TIME (PATIENT) 17.4 SECONDS (9.5-12.1)
[2019-10-11 21:31] LABS: BLOOD UREA NITROGEN 17 mg/dL (8-23); EST GLOMERULAR FILTRATION RATE > 60 mL/min; TOTAL PROTEIN 6.7 g/dL (6.6-8.7)
[2019-10-11 21:33] LABS: GLUCOSE,RANDOM 104 mg/dL (74-109)
[2019-10-11 21:36] LABS: ALB/GLOB RATIO 1.7 (1.1-1.8); ALBUMIN 4.2 g/dL (4.0-5.0); ALKALINE PHOSPHATASE 74 U/L (40-129); ALT/SGPT 22 U/L (<41); AST/SGOT 18 U/L (10.0-50.0)
[2019-10-11 21:47] LABS: THYROID STIMULATING HORMONE 1.13 uIU/mL (0.270-4.20)
--- NOTE | 2019-10-11 21:52 | RADIOLOGY REPORT ---
EXAMINATION: Two View Chest Radiographs EXAM DATE: 10/11/2019 9:40 PM TECHNIQUE: Frontal and lateral views INDICATION: cough COMPARISON: None ENCOUNTER: Not applicable FINDINGS: The heart, mediastinum, and pulmonary vasculature are normal. No lung consolidation or pleural effu sions are present. IMPRESSION: No acute pulmonary disease process Dictated by: Ashley Grullon DO on 10/11/2019 9:43 PM. .
== END 2019-10-11 22:13 | disposition home or self-care (01) ==
LOC: ER 20:40
DX: R00.2 Palpitations (principal); R05 Cough; I25.2 Old myocardial infarction; I10 Essential (primary) hypertension; I48.20 Chronic atrial fibrillation, unspecified; Z79.01 Long term (current) use of anticoagulants
CPT/HCPCS: 71046; 80053; 83880; 84443; 84484; 85025; 85610; 85730; 93005; 93010; 99285